=== PATIENT | female | born 1970 | race African-American/Black ===

== ENCOUNTER 2019-07-14 18:11 | Emergency (ER) | payer OTHER ==
[~2019-07-14] VITALS: Ht 160 cm; Wt 87.1 kg
[~2019-07-14 18:11] MED LIST: AZIT250T6 PO; CIPR10DR AS; HYDR5SUS PO
[2019-07-14 18:47] VITALS: BP 137/92
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
[2019-07-14] MEDS ORDERED: ORPH100T PO (20:46)
[2019-07-14] MEDS ORDERED: HYDR-3164 PO (20:46)
== END 2019-07-14 20:57 | disposition home or self-care (01) ==
LOC: ER 18:11
DX: M54.2 Cervicalgia (principal); R51 Headache; Z98.890 Other specified postprocedural states; Z98.51 Tubal ligation status; V43.52XA Car driver injured in collision with other type car in traffic accident, initial encounter; Y93.89 Activity, other specified; Y92.410 Unspecified street and highway as the place of occurrence of the external cause; Y99.8 Other external cause status
CPT/HCPCS: 70450; 72125; 99284